=== PATIENT | female | born 2000 | race African-American/Black ===

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

== ENCOUNTER 2021-06-28 20:36 | Emergency (ER) | payer MEDICAID ==
[~2021-06-28] VITALS: Ht 165.1 cm; Wt 112.0 kg
[2021-06-28] MEDS ORDERED: MORPHINE SULFATE 4 MG/ML CPJ (NOT FOR IM USE) IV ONE (21:30)
[2021-06-28 21:50] LABS: BASOPHILS % 0.3 % (0.0-2.0); HEMATOCRIT. 39.7 % (36.0-48.0); HEMOGLOBIN. 13.1 g/dL (12.0-16.0); LYMPHOCYTES % 23.3 % (20.0-50.0); MEAN CORPUSCULAR HEMOGLOBIN 29.2 pg (28.0-32.0); MEAN CORPUSCULAR VOLUME 88.6 fL (81.0-99.0); MEAN PLATELET VOLUME 8.4 fl (7.4-10.4); MONOCYTES % 5.9 % (2.0-8.0); NEUTROPHILS % 69.5 % (40.0-76.0); PLATELET 291 x1000/uL (130-400); RED BLOOD CELL COUNT 4.48 mill/uL (4.2-5.4); RED CELL DISTRIBUTION WIDTH 15.2 % (11.6-14.6)
[2021-06-28 21:56] LABS: CHLORIDE 104 mEq/L (98-107)
[2021-06-28 22:07] LABS: B-HCG QUANTITATIVE < 1 mIU/mL (<3)
[2021-06-28] MEDS ORDERED: FENTANYL CITRATE/PF 50MCG/ML 2ML VIAL IV ONE (22:45)
[2021-06-29] MEDS ORDERED: TOPUD PO (00:08)
[2021-06-29] MEDS ORDERED: MORP15TA67 MT (00:09)
[2021-06-29 00:40] VITALS: BP 136/86
== END 2021-06-29 01:11 | disposition home or self-care (01) ==
LOC: ER 20:36
DX: S31.104A Unspecified open wound of abdominal wall, left lower quadrant without penetration into peritoneal cavity, initial encounter (principal); Z88.6 Allergy status to analgesic agent; X58.XXXA Exposure to other specified factors, initial encounter; Y93.89 Activity, other specified; Y92.89 Other specified places as the place of occurrence of the external cause; Y99.8 Other external cause status
CPT/HCPCS: 36415; 80053; 84702; 85025; 86850; 86900; 86901; 96374; 96375; 99284; J2270; J3010

== ENCOUNTER 2022-10-19 12:59 | Emergency (ER) | payer MEDICAID ==
[~2022-10-19] VITALS: Ht 170.2 cm; Wt 93.0 kg
[~2022-10-19 12:59] MED LIST: MORP15TA67 MT; TOPUD PO
[2022-10-19] MEDS ORDERED: ACETAMINOPHEN 500MG TABLET PO ONE (14:45)
[2022-10-19] MEDS ORDERED: TOPUD PO (15:25)
[2022-10-19 16:02] VITALS: BP 117/78
== END 2022-10-19 16:08 | disposition home or self-care (01) ==
LOC: ER 13:03
DX: M25.561 Pain in right knee (principal); D64.9 Anemia, unspecified; J45.909 Unspecified asthma, uncomplicated; F31.9 Bipolar disorder, unspecified
CPT/HCPCS: 73562; 99283